=== PATIENT | female | born 1995 | race Caucasian/White ===

== ENCOUNTER 2019-06-02 16:38 | Emergency (ER) | payer BC ==
--- NOTE | 2019-06-02 17:33 | CR ---
INDICATION: Patient states cough and sore throat for 1 month TECHNIQUE: Chest radiograph 2 views COMPARISON: None FINDINGS: Mediastinum: The mediastinum is normal in appearance. The heart silhouette is normal in size and morphology. Lung: Increased density seen within the infrahilar region bilaterally. No sign of pleural effusion seen. No pneumothorax is identified. Bone and Soft tissue: Unremarkable for age. IMPRESSION: 1. Increased density seen within the infrahilar region bilaterally. This may be a summation artifact from pulmonary vessels but follow-up radiograph in 1-2 months is recommended to document stability or resolution. Dictated by Honorio Sage MD @ 06/02/2019 5:31:26 PM Dictated by: Honorio Sage MD @ 06/02/2019 17:31:30 (Electronically Signed)
--- NOTE | 2019-06-02 17:52 | EDM.PDOC ---
ED HPI GENERAL MEDICAL PROBLEM - General Chief Complaint: General Stated Complaint: ASTHMA Time Seen by Provider: 06/02/19 16:52 Source of Information: Reports: Patient History Limitations: Reports: No Limitations - History of Present Illness INITIAL COMMENTS - FREE TEXT/NARRATIVE: History of present illness: []Patient has a history of asthma and has been coughing and wheezing for the last 3 weeks. She states she has felt hot and cold but has not ride to measure a temperature. Review of systems: As per history of present illness and below otherwise all systems reviewed and negative. Past medical history: As per history of present illness and as reviewed below otherwise noncontributory. Surgical history: As per history of present illness and as reviewed below otherwise noncontributory. Social history: No reported history of drug or alcohol abuse. Family history: As per history of present illness and as reviewed below otherwise noncontributory. Physical exam: General: Well developed, well nourished in NAD HEENT: Atraumatic, normocephalic, pupils reactive, negative for conjunctival pallor or scleral icterus, mucous membranes moist, throat clear, neck supple, nontender, trachea midline. Lungs: Rhonchi right greater than left to auscultation, no chest wall retractions or respiratory distress, no wheezing, chest nontender. Heart: S1S2, regular, negative for clicks, rubs, or JVD. Abdomen: NABS, Soft, nondistended, nontender. Negative for masses or hepatosplenomegaly. Negative for costovertebral tenderness. Pelvis: Stable nontender. Genitourinary: Deferred. Rectal: Deferred. Extremities: Atraumatic, negative for cords or calf pain. Neurovascular unremarkable. Neuro: Awake, alert, oriented. Cranial nerves II through XII unremarkable. Cerebellum unremarkable. Motor and sensory unremarkable throughout. Exam nonfocal. Skin:warm and dry Diagnostics: Influenza, chest x-ray Therapeutics: None ED Course: Stable Impression: acute bronchitis Prescriptions: Zithromax Plan: Take meds as directed, follow up with your primary care physician, return to ER if symptoms worsen or change. Definitive disposition and diagnosis as appropriate pending reevaluation and review of above. Throat Pain Score (Numeric/FACES): 6 - Related Data Allergies Allergy/AdvReac Type Severity Reaction Status Date / Time No Known Allergies Allergy Verified 06/02/19 16:43 Home Meds: Home Meds Azithromycin [Zithromax] 250 mg PO DAILY #6 tab 06/02/19 [Rx] Mepolizumab (Recombinant) [Nucala] 100 mg SQ ASDIRECTED 06/02/19 [History] Past Medical History Hematologic History: Reports: Other (See Below) Other Hematologic History: eosinophilia - Infectious Disease History Infectious Disease History: Reports: Chicken Pox Social & Family History - Family History Family Medical History: Noncontributory - Tobacco Use Smoking Status *Q: Never Smoker - Caffeine Use Caffeine Use: Reports: Coffee - Recreational Drug Use Recreational Drug Use: No ED ROS GENERAL - Review of Systems Review Of Systems: See Below ED EXAM, GENERAL - Physical Exam Exam: See Below Course - Vital Signs Last Recorded V/S: Last Vital Signs Temp 98.5 F 06/02/19 18:58 Pulse 100 06/02/19 18:58 Resp 15 06/02/19 18:58 BP 114/58 L 06/02/19 18:58 Pulse Ox 96 06/02/19 18:58 Departure - Departure Time of Disposition: 18:50 Disposition: Home, Self-Care 01 Condition: Good Clinical Impression: Acute bronchitis - Discharge Information *PRESCRIPTION DRUG MONITORING PROGRAM REVIEWED*: No *COPY OF PRESCRIPTION DRUG MONITORING REPORT IN PATIENT HAY[place]: No Prescriptions: Azithromycin [Zithromax] 250 mg PO DAILY #6 tab Instructions: Acute Bronchitis, Adult Forms: ED Department Discharge Additional Instructions: The following information is given to patients seen in the emergency department who are being discharged to home. This information is to outline your options for follow-up care. We provide all patients seen in our emergency department with a follow-up referral. The need for follow-up, as well as the timing and circumstances, are variable depending upon the specifics of your emergency department visit. If you don't have a primary care physician on staff, we will provide you with a referral. We always advise you to contact your personal physician following an emergency department visit to inform them of the circumstance of the visit and for follow-up with them and/or the need for any referrals to a consulting specialist. The emergency department will also refer you to a specialist when appropriate. This referral assures that you have the opportunity for follow-up care with a specialist. All of these measure are taken in an effort to provide you with optimal care, which includes your follow-up. Under all circumstances we always encourage you to contact your private physician who remains a resource for coordinating your care. When calling for follow-up care, please make the office aware that this follow-up is from your recent emergency room visit. If for any reason you are refused follow-up, please contact the [facility] Emergency Department at and asked to speak to the emergency department charge nurse. Take meds as directed, follow up with your primary care physician, return to ER if symptoms worsen or change. [facility] [address] [place] [id number]
== END 2019-06-02 18:53 | disposition home or self-care (01) ==
LOC: MW.ED 16:38
DX: J20.9 Acute bronchitis, unspecified (principal); J45.909 Unspecified asthma, uncomplicated
CPT/HCPCS: 71046; 71046-26; 87804; 99283; 99285-25

== ENCOUNTER 2020-02-18 18:53 | Emergency (ER) | payer BC ==
[2020-02-18] MEDS ORDERED: Albuterol 0.083% 2.5 MG/3 ML Neb Soln NEB ONE (19:05)
[2020-02-18] MEDS ORDERED: diphenhydrAMINE 50 MG Cap PO ONE (19:05)
[2020-02-18] MEDS ORDERED: predniSONE 20 MG Tab PO ONE (19:06)
--- NOTE | 2020-02-18 19:13 | EDM.PDOC ---
ED HPI GENERAL MEDICAL PROBLEM - General Chief Complaint: Respiratory Problem Stated Complaint: ASTHMA/DIFFICULTY BREATHING Time Seen by Provider: 02/18/20 18:59 - History of Present Illness INITIAL COMMENTS - FREE TEXT/NARRATIVE: History of present illness: [] Patient has asthma attack and last months. She has been on steroids twice during this. She gets better on steroids and worse with a Velazco. She has trouble breathing and wheezing and has a breathing treatment done at 2 PM but she still wheezing. She also recently has developed a rash which is like urticaria on her trunk and her forearms. She also has had a rash from asthma before when she was . She is never had a rash with the asthma except and. She is tried very hard to find some environmental exposure that is new and she cannot think of anything. Thumbs are moderate and continuous and gradually progressive. Nothing makes it better exertion makes it worse. He has no subjective fever and no fever here. Review of systems: As per history of present illness and below otherwise all systems reviewed and negative. Past medical history: As per history of present illness and as reviewed below otherwise noncontributory. Surgical history: As per history of present illness and as reviewed below otherwise noncontributory. Social history: No reported history of drug or alcohol abuse. Family history: As per history of present illness and as reviewed below otherwise noncontributory. Physical exam: Constitutional - well developed, well-nourished and in no acute distress HEENT - normocephalic, no evidence of trauma - external nose and mouth normal - no mass in neck and no JVD - mucosae moist EYES - full EOM, PERRL, no icterus - no evidence of inflammation, injection, or drainage Respiratory - no respiratory distress, equal bilateral expansion, lungsto auscultation and no abnormal lung sounds he is slightly prolonged expiratory phase of respiration. Saturation is 92% on room air but drops to 89 at times. Oxygen given as a supplement while we decide her disposition. Cardiovascular - Regular Rhythm with S1 and S2 appreciated and no murmur, gallop or rub. Peripheral pulses symmetrically normal in all four extremities GI - abdomen soft without distension or organomegaly - normal bowel sounds - no guard or rebound Musculoskeletal no gross deformity of long bones or joints - no tenderness, swelling or edema Neurologic - Alert and oriented times four - CN II-XII grossly intact - motor sensory and coordination symmetrically normal Psychiatric - appropriate mood and affect with normal thought content Hematologic - No petechiae or purpura - mucosa appropriate color and sclera not pale - normal nail bed color and refill Integument - no rash or evidence of trauma - normal turgor Diagnostics: [] Therapeutics: [] Impression: [] Plan: [] Definitive disposition and diagnosis as appropriate pending reevaluation and review of above. - Related Data Allergies Allergy/AdvReac Type Severity Reaction Status Date / Time No Known Allergies Allergy Verified 02/18/20 19:06 Home Meds: Home Meds Albuterol Sulfate [Albuterol Sulfate Hfa] 2 puff INH ASDIRECTED PRN 02/18/20 [History] Azithromycin [Zithromax] 250 mg PO DAILY #6 tab 02/18/20 [Rx] Fluticasone/Salmeterol [Advair 250-50] 02/18/20 [History] predniSONE [Prednisone] 40 mg PO DAILY #13 tablet 02/18/20 [Rx] Past Medical History Hematologic History: Reports: Other (See Below) Other Hematologic History: eosinophilia - Infectious Disease History Infectious Disease History: Reports: Chicken Pox Social & Family History - Family History Family Medical History: Noncontributory - Caffeine Use Caffeine Use: Reports: Coffee ED ROS GENERAL - Review of Systems Review Of Systems: Comprehensive ROS is negative, except as noted in HPI. ED EXAM, GENERAL - Physical Exam Exam: See Below Free Text/Narrative:: My physical exam as in the HPI Course - Vital Signs Text/Narrative:: 1934 hrs. the patient is receiving a breathing treatment and doing well. Her test turns out to be negative sign an order chest x-ray because of the prolonged nature of her illness. He is breathing easier after breathing treatment and steroids. Patient's oxygen saturation is 92 and above on room air. Patient is improved. X-ray shows some markings in the right upper area that are new and read by the radiologist as possible increased markings that are new as well. Impression is lower respiratory tract infection. Plan Zithromax and Orapred follow-up with PMD. Last Recorded V/S: Last Vital Signs Temp 98.3 F 02/18/20 19:00 Pulse 90 02/18/20 20:00 Resp 18 02/18/20 20:00 BP 102/57 L 07/19/20 20:00 Pulse Ox 94 L 02/18/20 20:00 - Orders/Labs/Meds Orders: Active Orders 24 hr Category Date Time Status RT Aerosol Therapy [RC] ASDIRECTED Care 02/18/20 19:05 Active Labs: Laboratory Tests 02/18/20 Range/Units 19:07 Urine HCG, Qual NEGATIVE (NEGATIVE) Meds: Medications Discontinued Medications Generic Name Dose Route Start Last Admin Trade Name Freq PRN Reason Stop Dose Admin Albuterol 2.5 mg 02/18/20 19:05 02/18/20 19:16 Proventil Neb Soln NEB 02/18/20 19:06 2.5 mg ONETIME ONE Administration Diphenhydramine HCl 50 mg 02/18/20 19:05 02/18/20 19:16 Benadryl PO 02/18/20 19:06 50 mg ONETIME ONE Administration Prednisone 40 mg 02/18/20 19:06 02/18/20 19:15 Prednisone PO 02/18/20 19:07 40 mg ONETIME ONE Administration Departure - Departure Time of Disposition: 20:22 Disposition: Home, Self-Care 01 Condition: Good Clinical Impression: Acute asthma, Lower respiratory tract infection - Discharge Information Prescriptions: predniSONE [Prednisone] 40 mg PO DAILY #13 tablet Instructions: Asthma, Adult, Community-Acquired Pneumonia, Adult, [id number] Forms: ED Department Discharge Additional Instructions: The following information is given to patients seen in the emergency department who are being discharged to home. This information is to outline your options for follow-up care. We provide all patients seen in our emergency department with a follow-up referral. The need for follow-up, as well as the timing and circumstances, are variable depending upon the specifics of your emergency department visit. If you don't have a primary care physician on staff, we will provide you with a referral. We always advise you to contact your personal physician following an emergency department visit to inform them of the circumstance of the visit and for follow-up with them and/or the need for any referrals to a consulting specialist. The emergency department will also refer you to a specialist when appropriate. This referral assures that you have the opportunity for follow-up care with a specialist. All of these measure are taken in an effort to provide you with optimal care, which includes your follow-up. Under all circumstances we always encourage you to contact your private physician who remains a resource for coordinating your care. When calling for follow-up care, please make the office aware that this follow-up is from your recent emergency room visit. If for any reason you are refused follow-up, please contact the [facility] Emergency Department at and asked to speak to the emergency department charge nurse. [facility] [address] [place] [id number] [facility] [address] [place] [id number] Sepsis Event Note (ED) - Evaluation Sepsis Screening Result: No Definite Risk - Focused Exam Vital Signs: Vital Signs Temp Pulse Resp BP Pulse Ox 02/18/20 20:00 90 18 102/57 L 94 L 02/18/20 19:52 94 L 02/18/20 19:00 98.3 F 99 18 125/68 91 L - My Orders Last 24 Hours: My Active Orders 02/18/20 19:05 RT Aerosol Therapy [RC] ASDIRECTED - Assessment/Plan Last 24 Hours: My Active Orders 02/18/20 19:05 RT Aerosol Therapy [RC] ASDIRECTED
--- NOTE | 2020-02-18 20:11 | CR ---
Chest: 2 views of the chest were obtained. Comparison: Prior chest x-ray of 06/02/19. Increased lung markings on the right side are noted. This is felt to be an interval change from prior exam. No alveolar densities are seen. Heart size and mediastinum are normal. Minimal scoliosis is noted. Impression: 1. Increased lung markings on the right side raising the possibility of bronchitis. 2. No other acute finding is appreciated. Diagnostic code #3 This report was dictated in MDT
== END 2020-02-18 20:42 | disposition home or self-care (01) ==
LOC: MW.ED 18:53
DX: J45.901 Unspecified asthma with (acute) exacerbation (principal); J22 Unspecified acute lower respiratory infection; Z79.899 Other long term (current) drug therapy
CPT/HCPCS: 71046; 71046-26; 81025; 94640; 99285-25; A9270-GY

== ENCOUNTER 2021-03-31 19:05 | Emergency (ER) | payer OTHER, BC ==
[2021-03-31] MEDS ORDERED: Sodium Chloride 0.9% 2.5 ML Syringe FLUSH PRN (19:28)
[2021-03-31] MEDS ORDERED: Sodium Chloride 0.9% 10 ML Syringe FLUSH PRN (19:28)
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
[2021-03-31] MEDS ORDERED: Iopamidol 755 MG/ML 500 ML Multipack Bottle IVPUSH ONE (20:09)
[2021-03-31 20:43] LABS: BLOOD UREA NITROGEN,BUN 9 mg/dL (7.0-18.0); CARBON DIOXIDE,CO2 22.7 mmol/L (21.0-32.0); CHLORIDE,CL 104 mmol/L (98-107); GLUCOSE RANDOM 110 mg/dL (74-106); POTASSIUM,K 2.9 mmol/L (3.5-5.1); SODIUM,NA 144 mmol/L (136-145)
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
== END 2021-03-31 23:00 | disposition home or self-care (01) ==
LOC: MW.ED 19:05
DX: Z04.1 Encounter for examination and observation following transport accident (principal); V89.2XXA Person injured in unspecified motor-vehicle accident, traffic, initial encounter
CPT/HCPCS: 36415; 70450; 71260; 72125; 74177; 80053; 80305; 80307; 84703; 85025; 99285; Q9967

== ENCOUNTER 2021-07-23 16:42 | Emergency (ER) | payer BC, OTHER ==
[2021-07-23] MEDS ORDERED: Diphtheria,Pertussis(Acell),Tetanus Vaccine 0.5 ML Syringe IM ONE (16:53)
[2021-07-23] MEDS ORDERED: Lidocaine 1% with EPINEPHrine 1:100,000 20 ML MDV INJECT ONE (16:54)
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
--- NOTE | 2021-07-23 17:36 | CR ---
INDICATION: Pain and laceration after fall. COMPARISON: None available. TECHNIQUE: The right knee was examined with AP and lateral views for a total of two views. FINDINGS: There is laceration in the infrapatellar region anteriorly. There is a moderate amount of soft tissue gas immediately inferior to the patella, with bulging of the soft tissues inferior to the laceration. Small 1 millimeter and submillimeter mildly radiopaque foreign bodies are seen in this bulging soft tissue consistent with small foreign bodies. There is no sign of any gas within the joint space to suggest violation of the joint capsule. There is no sign of a joint effusion. There is no sign of fracture or dislocation. The medial and lateral compartments are normal in height. There is no sign of a joint effusion. No soft tissue abnormality is seen elsewhere. IMPRESSION: Normal right knee. Laceration of the immediate anterior infrapatellar region with multiple small 1 millimeter and submillimeter mildly radiopaque foreign bodies located inferior to the laceration. Nothing seen to suggest violation of the joint capsule. Dictated by Jose Luis Morales MD @ 07/23/2021 5:34:22 PM (Electronically Signed)
== END 2021-07-23 17:57 | disposition home or self-care (01) ==
LOC: MW.ED 16:42
DX: S81.011A Laceration without foreign body, right knee, initial encounter (principal); Z23 Encounter for immunization; W01.198A Fall on same level from slipping, tripping and stumbling with subsequent striking against other object, initial encounter
CPT/HCPCS: 12002; 73560-26-RT; 73560-RT; 90471; 90715; 99283-25

== ENCOUNTER 2021-08-07 18:20 | Emergency (ER) | payer BC | END 2021-08-07 18:52 | disposition left against medical advice (07) | LOC: MW.ED 18:20 | DX: S81.011D Laceration without foreign body, right knee, subsequent encounter (principal); Z48.02 Encounter for removal of sutures | CPT/HCPCS: 99281 ==

== ENCOUNTER 2021-08-13 19:41 | Emergency (ER) | payer BC ==
[2021-08-13] MEDS ORDERED: Dexamethasone 10 MG/ML SDV IVPUSH ONE (19:56)
[2021-08-13 20:30] LABS: BLOOD UREA NITROGEN,BUN 4 mg/dL (7.0-18.0); CHLORIDE,CL 102 mmol/L (98-107); GLUCOSE RANDOM 86 mg/dL (74-106); POTASSIUM,K 3.2 mmol/L (3.5-5.1); SODIUM,NA 140 mmol/L (136-145)
[2021-08-13] MEDS ORDERED: Potassium Chloride 20 MEQ Tab.ER PO ONE (20:45)
[2021-08-13 20:49] LABS: CORONAVIRUS COVID-19 NAA NEGATIVE (NEGATIVE); INFLUENZA A NAA NEGATIVE (NEGATIVE); INFLUENZA B NAA NEGATIVE (NEGATIVE)
[2021-08-13] MEDS ORDERED: Albuterol/Ipratropium 3.0-0.5 MG/3 ML Neb Soln NEB ONE (20:55)
[2021-08-13] MEDS ORDERED: Albuterol 8 GM Inhaler INH ONE (21:12)
== END 2021-08-13 22:15 | disposition left against medical advice (07) ==
LOC: MW.ED 19:41
DX: J45.41 Moderate persistent asthma with (acute) exacerbation (principal); R09.02 Hypoxemia; Z20.822 Contact with and (suspected) exposure to COVID-19
CPT/HCPCS: 0240U; 36415; 71045; 80053; 81003; 81025; 83605; 85025; 93005; 96374; 99285; A9270; J1100; J7620-GY

== ENCOUNTER 2021-11-20 03:27 | Emergency (ER) | payer BC ==
[2021-11-20 04:05] LABS: BLOOD UREA NITROGEN,BUN 8 mg/dL (7.0-18.0); CARBON DIOXIDE,CO2 26.6 mmol/L (21.0-32.0); CHLORIDE,CL 102 mmol/L (98-107); GLUCOSE RANDOM 104 mg/dL (74-106); POTASSIUM,K 3.5 mmol/L (3.5-5.1); SODIUM,NA 137 mmol/L (136-145)
[2021-11-20] MEDS ORDERED: Albuterol 8 GM Inhaler INH ONE (04:17)
== END 2021-11-20 04:30 | disposition home or self-care (01) ==
LOC: MW.ED 03:27
DX: J45.901 Unspecified asthma with (acute) exacerbation (principal); Z79.899 Other long term (current) drug therapy
CPT/HCPCS: 36415; 71045; 80053; 85025; 99285; A9270

== ENCOUNTER 2021-12-09 04:54 | Emergency (ER) | payer BC | END 2021-12-09 05:20 | disposition home or self-care (01) | LOC: MW.ED 04:54 | DX: J06.9 Acute upper respiratory infection, unspecified (principal) | CPT/HCPCS: 99282; 99283 ==

== ENCOUNTER 2022-11-24 19:28 | Emergency (ER) | payer BC, MEDICAID ==
[2022-11-24] MEDS ORDERED: Albuterol/Ipratropium 3.0-0.5 MG/3 ML Neb Soln NEB ONE (19:40)
[2022-11-24] MEDS ORDERED: predniSONE 20 MG Tab PO ONE (19:40)
[2022-11-24] MEDS ORDERED: Albuterol/Ipratropium 3.0-0.5 MG/3 ML Neb Soln ONE (19:40)
[2022-11-24] MEDS ORDERED: Albuterol 0.083% 2.5 MG/3 ML Neb Soln NEB ONE (20:11)
== END 2022-11-24 21:50 | disposition home or self-care (01) ==
LOC: MW.ED 19:28
DX: J45.41 Moderate persistent asthma with (acute) exacerbation (principal)
CPT/HCPCS: 99284; A9270; 99283; J7620-GY

== ENCOUNTER 2022-12-04 17:13 | Emergency (ER) | payer MEDICAID ==
[2022-12-04] MEDS ORDERED: methylPREDNISolone Sodium Succinate 125 MG/2 ML SDV IM ONE (20:12)
[2022-12-04] MEDS ORDERED: Albuterol/Ipratropium 3.0-0.5 MG/3 ML Neb Soln NEB ONE (20:12)
== END 2022-12-04 21:00 | disposition home or self-care (01) ==
LOC: MW.ED 17:13
DX: J45.901 Unspecified asthma with (acute) exacerbation (principal); Z76.0 Encounter for issue of repeat prescription
CPT/HCPCS: 96372; 99284; J2930; 99283; J7620-GY